=== PATIENT | male | born 1980 | race Two or more races ===

== ENCOUNTER 2025-01-10 00:29 | Emergency (ER) | payer OTHER ==
[~2025-01-10] VITALS: Ht 180.3 cm; Wt 107.0 kg
[2025-01-10] MEDS ORDERED: LOSARTAN POTASS25 MG (00:41)
[2025-01-10] MEDS ORDERED: 0.9 % SODIUM CHLORIDE 1,000 ML IV STA (03:00)
[2025-01-10] MEDS ORDERED: HYOSCYAMINE SULFATE 0.125 MG TAB.SUBL SL ONE (03:00)
[2025-01-10] MEDS ORDERED: ONDANSETRON HCL 2 MG/ML VIAL IV STA (03:01)
[2025-01-10] MEDS ORDERED: FAMOtidine 10 MG/ML (4ML VIAL) IV PUSH STA (03:01)
[2025-01-10] MEDS ORDERED: ONDANSETRON HCL 2 MG/ML VIAL ONE ×2 (03:04→03:12)
[2025-01-10] MEDS ORDERED: HYOSCYAMINE SULFATE 0.125 MG TAB.SUBL ONE (03:04)
[2025-01-10] MEDS ORDERED: FAMOTIDINE/PF 20 MG/2 ML VIAL ONE ×2 (03:05→03:13)
[2025-01-10 03:40] LABS: BUN CREA RATIO 12.0 (7.0-25.0); CREATININE SERUM 1.23 mg/dL (0.70-1.30); GFR 63.35; GLUCOSE FASTING 98.0 mg/dL (65-100); OSMOLALITY SERUM 286.0 MOSM/KG (275-295)
[2025-01-10 03:47] LABS: BASO % 0.2 % (0.1-1.2); EOS # 0.23 (0.04-0.54); EOS % 1.9 % (0.7-7.0); LYMPH # 1.87 (1.18-3.74); LYMPH % 15.4 % (19.3-53.1); MEAN PLATELET VOLUME 11.10 fl (9.4-12.4); MONO # 0.82 (0.24-0.82); MONO % 6.8 % (4.7-12.5); NEUT # 9.15 (1.56-6.13); NEUT % 75.4 % (34.0-71.1); RED CELL DISTRIBUTION WIDTH 12.3 % (11.6-14.4)
== END 2025-01-10 05:29 | disposition home or self-care (01) ==
LOC: ER 00:29
DX: K52.89 Other specified noninfective gastroenteritis and colitis (principal); Z88.0 Allergy status to penicillin; Z88.6 Allergy status to analgesic agent